=== PATIENT | male | born 1975 | race Native Hawaiian/Other Pacific Islander ===

== ENCOUNTER 2019-02-25 15:28 | Outpatient (CLI) | payer OTHER | END 2019-02-25 22:20 | disposition home or self-care (01) | LOC: LABW 15:28 | DX: J01.00 Acute maxillary sinusitis, unspecified (principal); J02.9 Acute pharyngitis, unspecified; J40 Bronchitis, not specified as acute or chronic; R05 Cough; R50.9 Fever, unspecified | CPT/HCPCS: 87070; 87205 ==

== ENCOUNTER 2021-11-30 09:17 | Outpatient (CLI) | payer OTHER | END 2021-11-30 19:17 | disposition home or self-care (01) | LOC: US 09:17 | PROVIDERS: ATTEND Physician Assistant | DX: R10.13 Epigastric pain (principal) ==

== ENCOUNTER 2021-12-15 07:29 | Outpatient (CLI) | payer OTHER | END 2021-12-15 19:00 | disposition home or self-care (01) | LOC: LABW 07:29 | PROVIDERS: ATTEND Specialist | DX: R11.2 Nausea with vomiting, unspecified (principal); R19.7 Diarrhea, unspecified | CPT/HCPCS: 87338 ==

== ENCOUNTER 2022-01-04 09:12 | Outpatient (CLI) | payer OTHER | END 2022-01-04 19:10 | disposition home or self-care (01) | LOC: RAD 09:12 | PROVIDERS: ATTEND Specialist | DX: R11.2 Nausea with vomiting, unspecified (principal); R19.7 Diarrhea, unspecified; R19.4 Change in bowel habit ==